=== PATIENT | female | born 1995 | race Caucasian/White ===

== ENCOUNTER 2019-09-17 10:21 | Inpatient (IN) | payer OTHER ==
[~2019-09-17] VITALS: Ht 167.6 cm; Wt 100.9 kg
[2019-09-17] MEDS ORDERED: CHARCOAL/SORBITOL 50 GM/240 ML PO ONE (10:30)
[2019-09-17] MEDS ORDERED: PROMETHAZINE 25 MG/ML, 1ML ONE ×2 (10:44→14:31)
--- NOTE | 2019-09-17 10:50 | NUR ---
BIB BY [facility] FOR NAUSEA/ANXIETY AFTER INGESTING 32 200MG CAFFIENE TABLETS AT 730AM EMS REPORTS PATIENT FOUND ANXIOUS/DIPAHORETIC. BUT HR 111, SBP 120-130'S, FSBS WNL EMS PLACED PIV AND ADMINISTEREDED 4MG OF ZOFRAN MG VERSED, 50MCG OF FENT FOR COMPLAINTS OF ABD PAIN AND 500ML OF NS PATIENT VOMITING LARGE AMOUNT ROUGHLY 20MIN AFTER INGESTION (7:50AM) AND AT ROUGHLY 9:00AM WELL ON ARRIVAL DOES NOT APPEAR TOXIC: HR 115, 135/76 ECG BY EMT OBTAINED IMMEDIATLEY PROVIDER TO BEDSIDE: PLAN TO CONTROL NAUSEA, CONSULT POISON CONTROL AND MONITOR ON RACEHORSE TRAINER (TO AVOID CHARCOAL AT THIS TIME) DENIES SI WELL HX OF SI. DOES REPORT HX OF DEPRESSION/PTSD REPORTS SHE TOOK THE PILLS TO HELP HER KEEP UP AT WORK MOTHER AT BEDSIDE
[2019-09-17 10:52] LABS: BASOPHILS # (AUTO) 0.03 x10^3/uL (0-0.1); BASOPHILS % (AUTO) 0 % (0-1); EOSINOPHILS # (AUTO) 0.02 x10^3/uL (0-0.4); EOSINOPHILS % (AUTO) 0 % (1-7); LYMPHOCYTES # (AUTO) 1.51 x10^3/uL (1-3.4); LYMPHOCYTES % (AUTO) 13 % (22-44); MD NO; MEAN CORPUSCULAR HEMOGLOBIN 27.6 pg (27.0-34.8); MEAN CORPUSCULAR HGB CONC 34.1 g/dL (32.4-35.8); MEAN CORPUSCULAR VOLUME 80.9 fL (80-100); MEAN PLATELET VOLUME 7.9 fL (7.4-10.4); MONOCYTES # (AUTO) 0.37 x10^3/uL (0.2-0.8); MONOCYTES % (AUTO) 3 % (2-9); NEUTROPHILS # (AUTO) 9.97 x10^3/uL (1.8-6.8); NEUTROPHILS % (AUTO) 84 % (42-75); PLATELET COUNT 217 x10^3/uL (130-400); RED BLOOD COUNT 5.32 x10^6/uL (3.82-5.3); RED CELL DISTRIBUTION WIDTH 13.4 % (9.6-15.2)
[2019-09-17] MEDS ORDERED: PROMETHAZINE 25 MG/ML, 1ML IM ONE (11:00)
[2019-09-17] MEDS ORDERED: SODIUM CHLORIDE FLUSH 10ML SYR IVF ONE (11:00)
[2019-09-17] MEDS ORDERED: SODIUM CHLORIDE 0.9% 1,000ML IVBOLUS ONE (11:00)
[2019-09-17 11:01] LABS: ALBUMIN 3.9 g/dL (3.4-5.0); ANION GAP 13 mmol/L (5-15); CALCIUM 8.3 mg/dL (8.5-10.1); CHLORIDE 105 mmol/L (98-107)
[2019-09-17 11:04] LABS: ALANINE AMINOTRANSFERASE 34 U/L (12-78); ALKALINE PHOSPHATASE 90 U/L (45-117); BILIRUBIN,TOTAL 0.4 mg/dL (0.2-1.0); CREATINE KINASE, TOTAL 135 U/L (26-192); CREATININE 0.73 mg/dL (0.55-1.02)
[2019-09-17 11:05] LABS: SALICYLATE LEVEL < 1.7 mg/dL (2.8-20.0)
[2019-09-17] MEDS ORDERED: MAGNESIUM SULFATE PMX 2GM/50ML 50 ML IV ONE (11:30)
[2019-09-17] MEDS ORDERED: POTASSIUM CHLORIDE 40 MEQ in SODIUM CHLORIDE 0.9% 500 ML IV ONE (11:30)
[2019-09-17] MEDS: POTASSIUM CHLORIDE 20 MEQ TAB.ER.PRT PO ONE ×2 (11:30→12:06)
--- NOTE | 2019-09-17 11:35 | NUR ---
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 HOWEVER PATIENT QUITE HYPOKALEMIC:TO ADMIN MAG/POTASSIUM THEN ADMIT (POTASSIUM REPLETION)
[2019-09-17] MEDS ORDERED: MAGNESIUM SULFATE PMX 2GM/50ML 50 ML ONE (11:59)
[2019-09-17] MEDS ORDERED: POTASSIUM CHLORIDE 20 MEQ TAB.ER.PRT ONE (12:01)
--- NOTE | 2019-09-17 12:06 | NUR ---
medicated per emar (mag, po k, iv k) 1l ns complete Valerie with SW at bedside
[2019-09-17] MEDS ORDERED: ONDANSETRON 2MG/ML, 2ML ONE ×2 (12:27→13:28)
--- NOTE | 2019-09-17 12:29 | NUR ---
Unable to tolerate po potassium (stomach too irritated). provider aware-to cancel order medicated with additional dose of zofran vss on monitoring tech report to Adriano KUMAR
[2019-09-17] MEDS ORDERED: ONDANSETRON 2MG/ML, 2ML IVPush ONE ×2 (12:30→13:30)
--- NOTE | 2019-09-17 12:53 | NUR ---
REPORT FROM [facility]. IVF INFUSING. DISCUSSED POC W PT AND FAMILY. NO NEEDS AT THIS TIME.
[2019-09-17 13:28] LABS: ALANINE AMINOTRANSFERASE 29 U/L (12-78); ALBUMIN 3.7 g/dL (3.4-5.0); ANION GAP 9 mmol/L (5-15); CALCIUM 8.1 mg/dL (8.5-10.1); CHLORIDE 107 mmol/L (98-107); CREATININE 0.54 mg/dL (0.55-1.02)
[2019-09-17 13:30] LABS: ALKALINE PHOSPHATASE 82 U/L (45-117); BILIRUBIN,TOTAL 0.3 mg/dL (0.2-1.0); TOTAL PROTEIN 7.6 g/dL (6.4-8.2)
[2019-09-17] MEDS ORDERED: ENOXAPARIN 40 MG/0.4 ML ONE (13:53)
[2019-09-17] MEDS: ENOXAPARIN 40 MG/0.4 ML SQ SCH (13:56)
--- NOTE | 2019-09-17 13:56 | NUR ---
PT RESTING IN BED, FAMILY AT BESIDE. CALL LIGHT IN REACH
--- NOTE | 2019-09-17 14:20 | NUR ---
LASHONDA KUMAR FROM POISON CONTROL FOLLOW UP CALL REQUESTING UPDATE ON PT.
--- NOTE | 2019-09-17 14:55 | NUR ---
PT AMBULATED TO BATHROOM. VOMITTED WHILE IN BATHROOM. REFUSING PHENERGEN IM. PT RESTING IN BED. NO NEEDS AT THIS TIME.
[2019-09-17] MEDS: POTASSIUM CHLORIDE 20 MEQ in LACTATED RINGERS 1,000 ML IV SCH (15:40)
[2019-09-17] MEDS: PROMETHAZINE 25 MG/ML, 1ML IM PRN ×2 (15:48→21:34)
--- NOTE | 2019-09-17 15:51 | NUR ---
MEDICATED FOR NAUSEA W PHENERGEN. PT SCREAMED WHEN GETTING IM. PT ALSO COMPLAINS OF ABDOMINAL PAIN. FARHEEN GOMEZ AWARE. GIVEN ATARAX FOR ANXIETY.,
--- NOTE | 2019-09-17 16:07 | NUR ---
REPORT TO MARINA
[2019-09-17 17:25] VITALS: BP 125/69
[2019-09-17] MEDS: ONDANSETRON 2MG/ML, 2ML IVPush PRN (17:49)
[2019-09-17 20:32] VITALS: BP 117/55
[2019-09-17] MEDS: ACETAMINOPHEN 325 MG TABLET PO PRN (21:23)
[2019-09-17] MEDS ORDERED: IBUPROFEN 200 MG TABLET PO ONE (22:30)
[2019-09-18] MEDS: ONDANSETRON 2MG/ML, 2ML IVPush PRN ×2 (00:32→09:16)
[2019-09-18 00:36] VITALS: BP 124/69
[2019-09-18] MEDS: ACETAMINOPHEN 325 MG TABLET PO PRN ×2 (02:11→09:15)
[2019-09-18] MEDS: POTASSIUM CHLORIDE 20 MEQ in LACTATED RINGERS 1,000 ML IV SCH (02:15)
[2019-09-18 05:21] LABS: BASOPHILS # (AUTO) 0.14 x10^3/uL (0-0.1); BASOPHILS % (AUTO) 1 % (0-1); EOSINOPHILS # (AUTO) 0.09 x10^3/uL (0-0.4); EOSINOPHILS % (AUTO) 1 % (1-7); LYMPHOCYTES % (AUTO) 24 % (22-44); MD NO; MEAN CORPUSCULAR HEMOGLOBIN 27.4 pg (27.0-34.8); MEAN CORPUSCULAR HGB CONC 32.9 g/dL (32.4-35.8); MEAN CORPUSCULAR VOLUME 83.2 fL (80-100); MEAN PLATELET VOLUME 8.2 fL (7.4-10.4); MONOCYTES # (AUTO) 0.84 x10^3/uL (0.2-0.8); MONOCYTES % (AUTO) 5 % (2-9); NEUTROPHILS # (AUTO) 11.31 x10^3/uL (1.8-6.8); NEUTROPHILS % (AUTO) 70 % (42-75); PLATELET COUNT 250 x10^3/uL (130-400); RED BLOOD COUNT 5.17 x10^6/uL (3.82-5.3); RED CELL DISTRIBUTION WIDTH 13.4 % (9.6-15.2)
[2019-09-18 05:30] LABS: ALBUMIN 3.7 g/dL (3.4-5.0); ANION GAP 9 mmol/L (5-15); CALCIUM 8.5 mg/dL (8.5-10.1); CHLORIDE 107 mmol/L (98-107)
[2019-09-18 05:34] LABS: CREATININE 0.58 mg/dL (0.55-1.02)
[2019-09-18 05:35] LABS: ALANINE AMINOTRANSFERASE 30 U/L (12-78); ALKALINE PHOSPHATASE 80 U/L (45-117); BILIRUBIN,TOTAL 0.4 mg/dL (0.2-1.0); TOTAL PROTEIN 7.4 g/dL (6.4-8.2)
[2019-09-18] MEDS ORDERED: POTASSIUM CHLORIDE 20 MEQ TAB.ER.PRT PO ONE (09:00)
[2019-09-18 09:14] VITALS: BP 112/70
[2019-09-18] MEDS ORDERED: IBUPROFEN 200 MG TABLET PO PRN (11:30)
[2019-09-18] MEDS: ENOXAPARIN 40 MG/0.4 ML SQ SCH (13:30)
[2019-09-18 14:05] VITALS: BP 107/70
[2019-09-18 14:23] LABS: ANION GAP 6 mmol/L (5-15); CHLORIDE 109 mmol/L (98-107)
[2019-09-18 20:19] VITALS: BP 137/77
[2019-09-19 01:58] VITALS: BP 111/70
[2019-09-19 06:39] LABS: ALBUMIN 3.7 g/dL (3.4-5.0); ANION GAP 8 mmol/L (5-15); CALCIUM 8.9 mg/dL (8.5-10.1); CHLORIDE 110 mmol/L (98-107)
[2019-09-19 06:42] LABS: ALANINE AMINOTRANSFERASE 27 U/L (12-78); ALKALINE PHOSPHATASE 75 U/L (45-117); BASOPHILS # (AUTO) 0.05 x10^3/uL (0-0.1); BASOPHILS % (AUTO) 1 % (0-1); BILIRUBIN,TOTAL 0.4 mg/dL (0.2-1.0); CREATININE 0.65 mg/dL (0.55-1.02); EOSINOPHILS # (AUTO) 0.07 x10^3/uL (0-0.4); EOSINOPHILS % (AUTO) 1 % (1-7); LYMPHOCYTES # (AUTO) 2.77 x10^3/uL (1-3.4); LYMPHOCYTES % (AUTO) 32 % (22-44); MD NO; MEAN CORPUSCULAR HEMOGLOBIN 27.1 pg (27.0-34.8); MEAN PLATELET VOLUME 8.3 fL (7.4-10.4); MONOCYTES # (AUTO) 0.55 x10^3/uL (0.2-0.8); MONOCYTES % (AUTO) 6 % (2-9); NEUTROPHILS # (AUTO) 5.23 x10^3/uL (1.8-6.8); NEUTROPHILS % (AUTO) 60 % (42-75); PLATELET COUNT 254 x10^3/uL (130-400); RED BLOOD COUNT 5.22 x10^6/uL (3.82-5.3); RED CELL DISTRIBUTION WIDTH 13.9 % (9.6-15.2); TOTAL PROTEIN 7.6 g/dL (6.4-8.2)
[2019-09-19 07:05] VITALS: BP 110/72
== END 2019-09-19 14:11 | disposition home or self-care (01) | DRG 918 ==
LOC: ED 10:46 → EDIP 12:03 → 4WST 16:53 → DCLOUNGE 09-19 14:00
PROVIDERS: ADMIT Internal Medicine; ATTEND Internal Medicine
DX: T43.611A Poisoning by caffeine, accidental (unintentional), initial encounter (principal); R45.851 Suicidal ideations; D72.829 Elevated white blood cell count, unspecified; E87.6 Hypokalemia; F29 Unspecified psychosis not due to a substance or known physiological condition; F32.9 Major depressive disorder, single episode, unspecified; F43.10 Post-traumatic stress disorder, unspecified; F43.20 Adjustment disorder, unspecified; Z87.891 Personal history of nicotine dependence; R94.31 Abnormal electrocardiogram [ECG] [EKG]; R11.2 Nausea with vomiting, unspecified; Y92.89 Other specified places as the place of occurrence of the external cause
CPT/HCPCS: 36415; 80053; 85025; 96361; 96365; 96372; 96375; 96376; J1650; J2405; J2550; J3480; J3475; J7030; J7040; J7120; Q0177